=== PATIENT | male | born 1945 | race Hispanic/Latino ===

== ENCOUNTER 2018-01-21 05:30 | Day surgery (SDC) | payer MEDICARE ==
[~2018-01-21] VITALS: Ht 154.9 cm; Wt 51.0 kg
[2018-01-21 05:15] VITALS: BP 90/41
[~2018-01-21 05:30] MED LIST: ALEN35TA31 PO; ATOR10TA69 PO; CALC600T12 PO; CHOL20004 PO; HYDR-4060 PO; ISOS20TA7 PO; MAGN200T4 PO; METO25TA6 PO; MV,M1TAB2 PO; MYCO200S2 PO; MYCO360T3 PO; OMEP20CA10 PO; PRED5TAB PO; RANI150C4 PO; TACR1CAP10 PO; TYL3 PO; [UNRECOGNIZED DRUG - CODE] PO
[2018-01-21] MEDS ORDERED: SODIUM CHLORIDE 0.9% 1000ML 1,000 ML IV ONE ×2 (06:31→06:41)
[2018-01-21] MEDS ORDERED: PROPOFOL 10 MG/ML 20ML VIAL IV ONE (07:11)
[2018-01-21] MEDS ORDERED: LIDOCAINE HCL 2% 20ML ONE (07:11)
[2018-01-21 07:24] VITALS: BP 92/49
[2018-01-21 07:37] VITALS: BP 105/57
[2018-01-21 07:52] VITALS: BP 112/44
[2018-01-21] MEDS ORDERED: ESOM40CA PO (07:56)
== END 2018-01-21 08:06 | disposition home or self-care (01) ==
LOC: ENDO 05:30 → DAH 05:30 → ENDO 08:06
PROVIDERS: ATTEND Internal Medicine Gastroenterology
DX: K29.50 Unspecified chronic gastritis without bleeding (principal); K44.9 Diaphragmatic hernia without obstruction or gangrene; E78.5 Hyperlipidemia, unspecified; K21.9 Gastro-esophageal reflux disease without esophagitis; J44.9 Chronic obstructive pulmonary disease, unspecified; M81.0 Age-related osteoporosis without current pathological fracture; Z94.2 Lung transplant status; Z98.890 Other specified postprocedural states; Z79.899 Other long term (current) drug therapy; Z79.84 Long term (current) use of oral hypoglycemic drugs; K31.84 Gastroparesis; R63.4 Abnormal weight loss; Z86.010 Personal history of colon polyps
CPT/HCPCS: 43239; 88305; 88312; 93005; A4606; J2704; J3490; J7030 ×2